=== PATIENT | male | born 1990 | race Caucasian/White ===

== ENCOUNTER → 2018-07-01 | Outpatient (CLI) | payer OTHER | LOC: ULTRA 10:06 | DX: R16.1 Splenomegaly, not elsewhere classified (principal); R10.11 Right upper quadrant pain ==

== ENCOUNTER → 2020-10-11 | Outpatient (CLI) | payer OTHER | LOC: CAT 14:55 → MRI 14:55 | PROVIDERS: ATTEND Family Medicine | DX: R51.9 Headache, unspecified (principal); H54.7 Unspecified visual loss ==